=== PATIENT | male | born 1985 | race Caucasian/White ===

== ENCOUNTER 2019-03-12 04:25 | Emergency (ER) | payer SELFPAY ==
[~2019-03-12] VITALS: Ht 170.2 cm; Wt 73.0 kg
[2019-03-12] MEDS ORDERED: DIAZEPAM 5 MG TABLET PO ONE (06:45)
[2019-03-12] MEDS ORDERED: IBUPROFEN 800MG TABLET PO ONE (06:45)
[2019-03-12] MEDS ORDERED: HYDROCODONE/ACETAMINOPHEN 5/325MG TABLET PO ONE (06:45)
[2019-03-12 07:40] VITALS: BP 106/86
== END 2019-03-12 08:17 | disposition home or self-care (01) ==
LOC: ER 05:32
DX: S16.1XXA Strain of muscle, fascia and tendon at neck level, initial encounter (principal); M25.511 Pain in right shoulder; M54.6 Pain in thoracic spine; V89.2XXA Person injured in unspecified motor-vehicle accident, traffic, initial encounter; Y93.89 Activity, other specified; Y92.89 Other specified places as the place of occurrence of the external cause; Y99.8 Other external cause status
CPT/HCPCS: 71045; 72040; 99284; Z7610